=== PATIENT | male | born 1955 | race Two or more races ===

== ENCOUNTER → 2024-07-11 | Outpatient (CLI) | payer MEDICARE, SELFPAY ==
--- NOTE | 2024-07-11 08:45 | XR_ITS ---
Examination: Ultrasound liver Elastography Exam date and time: July 11, 2024 0851 hours INDICATIONS: Diagnosis chronic hepatitis C antibody positive, nonalcoholic fatty liver diagnosis TECHNIQUE AND FINDINGS: Sonographic images liver demonstrates sagittal dimension 13.2 cm Tissues stiffness average 1.5 m/s which is mild to moderate liver fibrosis IMPRESSION: [id number] liver fibrosis staging
== END | disposition home or self-care (01) ==
LOC: CDIM 08:21
PROVIDERS: Referring Provider Physician Assistant; Visit Provider Physician Assistant
DX: K74.00 Hepatic fibrosis, unspecified (principal)
CPT/HCPCS: 76981

== ENCOUNTER → 2025-06-11 | Outpatient (CLI) | payer MEDICARE, SELFPAY ==
--- NOTE | 2025-06-11 14:49 | XR_ITS ---
Examination: Lumbar spine, 5 views Technique: Lumbar spine AP, lateral, coned lateral lower lumbar spine, bilateral obliques 5 views Exam date and time: June 11, 2025, 1459 hours INDICATIONS: Chronic low back pain years. FINDINGS: Thoracolumbar levoscoliosis 10 degrees, short angle lumbar lower dextroscoliosis 10 degrees Moderate diffuse facet arthropathy. Diffuse lumbar degenerative disc disease, advanced L4-L5, L5-S1 IMPRESSION: Diffuse lumbar degenerative disc disease, advanced L4-L5, L5-S1 with significant spinal stenosis
== END | disposition home or self-care (01) ==
LOC: CDIM 14:36
PROVIDERS: PCP Physician Assistant; Referring Provider Physician Assistant; Visit Provider Physician Assistant
DX: M51.360 Other intervertebral disc degeneration, lumbar region with discogenic back pain only (principal); M51.370 Other intervertebral disc degeneration, lumbosacral region with discogenic back pain only; M48.07 Spinal stenosis, lumbosacral region; M48.061 Spinal stenosis, lumbar region without neurogenic claudication
CPT/HCPCS: 72110